=== PATIENT | female | born 1970 | race Two or more races ===

== ENCOUNTER 2020-03-28 22:32 | Emergency (ER) | payer OTHER ==
[~2020-03-28] VITALS: Ht 165.1 cm; Wt 9.1 kg
--- NOTE | 2020-03-28 23:08 | NUR ---
C-Collar applied for head, neck, back, and shoulder pain after mechanical fall
[2020-03-28 23:33] VITALS: BP 116/74
[2020-03-28] MEDS ORDERED: ondansetron/PF 4mg/2ml inj IV ONE (23:45)
[2020-03-28] MEDS ORDERED: morphine 4 MG/ML inj SYRINge IV ONE ×2 (23:45)
--- NOTE | 2020-03-29 01:12 | NUR ---
pt ambulated successfully. Pt still has some pain in mid back and head, but no complaint of any neuro deficits,
[2020-03-29] MEDS ORDERED: ibuprofen 200mg tablet PO ONE (01:35)
== END 2020-03-29 01:44 | disposition home or self-care (01) ==
LOC: ER 22:32
DX: S16.1XXA Strain of muscle, fascia and tendon at neck level, initial encounter (principal); W19.XXXA Unspecified fall, initial encounter; Y93.89 Activity, other specified; Y92.89 Other specified places as the place of occurrence of the external cause; Y99.8 Other external cause status
CPT/HCPCS: 70450; 71045; 72125; 72128; 72170; 96374; 96375; 99285; J2270; J2405